=== PATIENT | female | born 1995 | race Caucasian/White ===

== ENCOUNTER → 2018-07-22 | Outpatient (CLI) | payer OTHER ==
[2016-04-05 14:31] VITALS: BP 117/72
[~2018-07-22] MED LIST: PNV1TABL25 PO
--- NOTE | 2018-07-23 08:50 | RAD ---
Obstetrical ultrasound, 07/22/2018: HISTORY: Unsure of dates Transabdominal scans were obtained. There is a twin intrauterine . The 2 fetuses are by a membrane. The fetus termed fetus A lies inferiorly in a cephalic orientation. The biparietal diameter measures 5.0 cm compatible with a gestational age of 21 weeks and 1 day. The average gestational age based on all of the measurements is 21 weeks and 2 days yielding a sonographic EDC of 11/30/2018. Normal activity and heart motion were seen. A four-chamber heart is evident with a heart rate of 145 bpm. Fluid is evident in the bladder and stomach. The visualized portions of the spine and kidneys are unremarkable. A three-vessel umbilical cord is identified with a normal cord insertion site. A normal amount of amniotic fluid is evident. The placenta supplying fetus A lies posteriorly. There is no evidence of placenta previa. The cervical length was estimated at 4.4 cm. The fetus termed fetus B lies in a transverse orientation with the head on the maternal left. The biparietal diameter measures 4.9 cm compatible with a gestational age of 20 weeks and 6 days. The femur length measurement suggests a gestational age of 22 weeks and 3 days. The average gestational age based on all of the measurements is 21 weeks and 4 days yielding a sonographic EDC of 11/28/2018. Normal activity and heart motion were seen. A four-chamber heart is present with a heart rate of 141 bpm. Fluid is identified in the bladder and stomach. The visualized portions of the spine and kidneys are unremarkable. A three-vessel umbilical cord is evident with a normal cord insertion site. A normal amount of amniotic fluid is present. The placenta supplying fetus B lies anteriorly. IMPRESSION: Twin intrauterine of 21-22 weeks gestational age as described above. Electronically signed by: Mervin Soliz MD (07/23/2018 8:47 AM) [facility]
== END | disposition home or self-care (01) ==
LOC: US 16:03
PROVIDERS: ATTEND Family Medicine
DX: O30.042 Twin pregnancy, dichorionic/diamniotic, second trimester (principal); Z3A.22 22 weeks gestation of pregnancy
CPT/HCPCS: 76805

== ENCOUNTER 2018-09-17 16:35 | Observation (INO) | payer OTHER ==
[2016-04-05 14:31] VITALS: BP 117/72
--- NOTE | 2018-09-18 07:52 | RAD ---
Ultrasound biophysical profile, 09/17/2018: HISTORY: Twin There is a twin intrauterine with the fetus termed twin A lying in a breech orientation on the maternal left, and the fetus termed twin B lying in a transverse orientation with a head on the maternal right. Twin A demonstrates a heart rate of 139 bpm. The overall uterine MISAEL is 17.8. The following biophysical profile scores were obtained for twin A: breathing movements-2 motion-2 tone-2 Amniotic fluid volume-2 Total score-8 out of 8 Twin B demonstrates a heart rate of 143 bpm. The following biophysical profile scores were obtained for twin B: breathing movements-2 motion-2 tone-2 Amniotic fluid volume-2 Total score-8 out of 8 Full surveys were not performed at this time. IMPRESSION: The ultrasound component of the biophysical profile score for both fetuses is 8 out of 8. Electronically signed by: Mervin Soliz MD (09/18/2018 7:49 AM) [facility]
== END 2018-09-17 19:00 | disposition hospice, home (50) ==
LOC: 3 SO LND 16:35
PROVIDERS: ADMIT Obstetrics & Gynecology; ATTEND Obstetrics & Gynecology
DX: O30.003 Twin pregnancy, unspecified number of placenta and unspecified number of amniotic sacs, third trimester (principal); Z3A.29 29 weeks gestation of pregnancy
CPT/HCPCS: 76819; G0378; G0379; 59025

== ENCOUNTER 2018-09-24 16:01 | Observation (INO) | payer OTHER ==
[2016-04-05 14:31] VITALS: BP 117/72
[2018-09-24] MEDS ORDERED: IV RINGERS,LACTATED 1000ML 1,000 ML IV PRN (16:15)
--- NOTE | 2018-09-24 17:22 | RAD ---
BIOPHYS PROFILE W/O NON STRESS History: Twin gestation Comparison: September 18, 2018. Findings: Multiple sonographic images from a biophysical profile are submitted. There was 8 of 8 scoring for both babies. Baby A was in cephalic presentation. Estimated MISAEL for baby A was 10.5 cm. heart rate for baby A was 126 beats per minute. There is posterior placenta for baby A. Baby B was in transverse position with head to the maternal right side. Estimated MISAEL for baby B was 10.5 cm. Baby B heart rate 126 bpm. There is anterior placenta for baby B. Impression: 1. There was 8 of 8 scoring for the biophysical profile for both babies. Electronically signed by: Mario Schmidt MD (09/24/2018 5:19 PM) [facility]
== END 2018-09-24 17:29 | disposition home health service (06) ==
LOC: 3 SO LND 16:01
PROVIDERS: ADMIT Obstetrics & Gynecology; ATTEND Obstetrics & Gynecology
DX: O30.003 Twin pregnancy, unspecified number of placenta and unspecified number of amniotic sacs, third trimester (principal); Z3A.30 30 weeks gestation of pregnancy
CPT/HCPCS: 76819; G0379; 59025

== ENCOUNTER 2018-10-01 15:59 | Observation (INO) | payer OTHER ==
[2016-04-05 14:31] VITALS: BP 117/72
--- NOTE | 2018-10-02 07:53 | RAD ---
Ultrasound biophysical profile, 10/01/2018: HISTORY: Twin gestation The limited exam of the gravid uterus demonstrates a twin . The fetus termed baby A lies inferiorly in a breech orientation. It demonstrates a heart rate of 152 bpm. The overall amniotic fluid index is 11.6. The placenta supplying this fetus lies posteriorly. The following biophysical profile scores were obtained for baby A: breathing movements-2 motion-2 tone-2 Amniotic fluid volume-2 Total score-8 out of 8 Baby B lies in a transverse orientation with the head on the maternal right. The heart rate for baby B is 143 bpm. The placenta supplying this fetus lies anteriorly. The following biophysical profile scores were obtained for baby B: breathing movements-2 motion-2 tone-2 Amniotic fluid volume-2 Total score 8 out of 8 IMPRESSION: The ultrasound component of the biophysical profile score is 8 out of 8 for both fetuses. Electronically signed by: Mervin Soliz MD (10/02/2018 7:49 AM) [facility]
== END 2018-10-01 17:10 | disposition home or self-care (01) ==
LOC: 3 SO LND 15:59
PROVIDERS: ADMIT Family Medicine; ATTEND Family Medicine
DX: O30.003 Twin pregnancy, unspecified number of placenta and unspecified number of amniotic sacs, third trimester (principal); Z3A.31 31 weeks gestation of pregnancy
CPT/HCPCS: 76819; G0379; 59025

== ENCOUNTER 2018-10-08 16:07 | Observation (INO) | payer OTHER ==
[2016-04-05 14:31] VITALS: BP 117/72
[2018-10-08] MEDS ORDERED: IV RINGERS,LACTATED 1000ML 1,000 ML IV SCH (16:30)
--- NOTE | 2018-10-08 18:02 | RAD ---
EXAM: biophysical profile. HISTORY: Twin biophysical profile assessment. TECHNIQUE: Sonographic imaging of a gravid uterus was performed. COMPARISON: 09/04/2018. FINDINGS: There is a twin intrauterine gestation. There is an anterior placenta without evidence of placenta previa. Twin A demonstrates normal breathing motion, body motion and tone and there is a normal amniotic fluid volume of 10.1 cm. This corresponds with a biophysical profile of 8/8. The twin A heart rate is 133 bpm. The twin A is in breech presentation. The twin A biparietal diameter is 7.72 cm, the head circumference is 28 point to 8 cm, the abdominal circumference is 27.76 cm, and the femoral length is 6.05 cm. This corresponds with an estimated gestational age of 31 weeks and 2 days and estimated weight of 1790 g. Twin B demonstrates normal breathing motion, body motion and tone and there is a normal and annular fluid volume of 10.1 cm. This corresponds with a biophysical profile of 8/8. The twin B heart rate is 132 bpm. The twin B is in transverse presentation. The twin B biparietal diameter is 7.63 cm, the head circumference is 27.92 cm, the abdominal circumference is 28.81 cm, and the femoral length is 6.43 cm. This corresponds with an estimated gestational age of 31 weeks and 6 days and estimated weight of 1985 g. IMPRESSION: Twin intrauterine gestation. Both twins demonstrate normal biophysical profiles of 8/8. Electronically signed by: Maribell Maurer MD (10/08/2018 5:59 PM) [facility]
== END 2018-10-08 17:40 | disposition home or self-care (01) ==
LOC: 3 SO LND 16:07
PROVIDERS: ADMIT Obstetrics & Gynecology; ATTEND Obstetrics & Gynecology
DX: O30.003 Twin pregnancy, unspecified number of placenta and unspecified number of amniotic sacs, third trimester (principal); Z3A.32 32 weeks gestation of pregnancy
CPT/HCPCS: 76819; G0378; G0379; 59025

== ENCOUNTER 2018-10-15 16:22 | Observation (INO) | payer OTHER ==
[2016-04-05 14:31] VITALS: BP 117/72
[2018-10-15] MEDS ORDERED: IV RINGERS,LACTATED 1000ML 1,000 ML IV SCH (16:30)
--- NOTE | 2018-10-16 08:00 | RAD ---
Ultrasound biophysical profile, 10/15/2018: History: Twin The limited exam of the gravid uterus demonstrates a twin intrauterine . The fetus termed twin A lies on the maternal left in a breech orientation. It demonstrates a heart rate 153 bpm. The overall amniotic fluid index is 12.5. The measurements suggest a gestational age of 32 weeks and 3 days and a weight of 4 pounds and 4 ounces +/- 10 ounces. The following biophysical profile scores were obtained: breathing movement-2 motion-2 tone-2 Amniotic fluid volume-2 Total score-8 out of 8 The fetus termed twin B lies on the maternal right in a cephalic orientation. This fetus demonstrates a heart rate of 140 bpm. The measurements suggest a gestational age of 32 weeks and 4 days and a weight of 4 pounds and 7 ounces +/- 11 ounces. The following biophysical profile scores were obtained: breathing movements-2 motion-2 tone-2. Amniotic fluid volume-2 Total score-8 out of 8 IMPRESSION: The ultrasound component on the biophysical profile score for both fetuses is 8 out of 8.
== END 2018-10-15 17:44 | disposition home or self-care (01) ==
LOC: 3 SO LND 16:22
PROVIDERS: ADMIT Obstetrics & Gynecology; ATTEND Obstetrics & Gynecology
DX: O12.03 Gestational edema, third trimester (principal); Z3A.33 33 weeks gestation of pregnancy
CPT/HCPCS: 76819; G0379

== ENCOUNTER 2018-10-23 16:33 | Observation (INO) | payer OTHER ==
[2016-04-05 14:31] VITALS: BP 117/72
[2018-10-23 16:56] LABS: BILIRUBIN,URINE NEGATIVE (NEG); CLARITY,URINE CLOUDY; COLOR,URINE YELLOW; NITRITE,URINE NEGATIVE (NEG); PROTEIN,URINE NEGATIVE (NEG-TRACE)
[2018-10-23 17:00] LABS: CREATININE,RANDOM URINE 35.2 mg/dL (Not Establ.)
[2018-10-23] MEDS ORDERED: IV RINGERS,LACTATED 1000ML 1,000 ML IV SCH (17:00)
[2018-10-23 17:05] LABS: BASO % 0 % (0-3); EOS # 0.1 x10^3/uL (0.0-0.7); EOS % 1 % (0-3); HEMATOCRIT 29.3 % (36.0-47.0); HEMOGLOBIN 9.5 g/dL (12.0-15.5); LYMPH # 2.1 x10^3/uL (1.0-4.8); LYMPH % 21 % (24-48); MEAN CORPUSCULAR HEMOGLOBIN 26 pg (25-35); MEAN CORPUSCULAR HGB CONC 32 g/dL (31-37); MEAN CORPUSCULAR VOLUME 81 fL (79-100); MONO # 0.8 x10^3/uL (0.0-1.1); MONO % 8 % (0-9); NEUT # 7.2 x10^3uL (1.8-7.7); NEUT % 70 % (31-73); PLATELET COUNT 259 x10^3/uL (140-400); RED BLOOD COUNT 3.63 x10^6/uL (3.50-5.40); RED CELL DISTRIBUTION WIDTH 15.5 % (11.5-14.5); WHITE BLOOD COUNT 10.3 x10^3/uL (4.0-11.0)
[2018-10-23 17:13] LABS: CALCIUM 8.7 mg/dL (8.5-10.1); CREATININE 0.6 mg/dL (0.6-1.0); GFR 126.2; POTASSIUM 3.9 mmol/L (3.5-5.1)
[2018-10-23 17:19] LABS: ALBUMIN 2.4 g/dL (3.4-5.0); ALBUMIN/GLOBULIN RATIO 0.5 (1.0-1.7); TOTAL BILIRUBIN 0.4 mg/dL (0.2-1.0); TOTAL PROTEIN 7.5 g/dL (6.4-8.2); URIC ACID 2.9 mg/dL (2.6-6.0)
--- NOTE | 2018-10-23 17:35 | RAD ---
Biophysical profile score dated 10/23/2018. No comparison available. CLINICAL INDICATION: Biophysical profile. FINDINGS: Twin gestation. Biophysical profile score of twin A equals 8 out of 8. movement 2 out of 2. tone 2 out of 2. fluid volume 2 out of 2. breathing 2 out of 2. Twin A is in breech presentation with amniotic fluid index of 11.2 cm. Heart rate 143 bpm. Placenta is posterior in location without placenta previa. Estimated sonographic gestational age of 34 weeks 0 days with estimated date of delivery of 12/04/2018. Biophysical profile score of twin B equals 8 out of 8. movement 2 out of 2. tone 2 out of 2. fluid volume 202. breathing 2 out of 2. Twin B is in cephalic presentation with amniotic fluid index of 11.2 cm. Heart rate 139 bpm. Placenta is anterior in location. Estimated sonographic gestational age of 33 weeks 5 days with estimated date of delivery of 12/06/2018. IMPRESSION: Viable twin gestation. Biophysical profile scores equal 8 out of 8. Electronically signed by: Russell Viramontes MD (10/23/2018 5:32 PM) [facility]
== END 2018-10-23 18:23 | disposition home or self-care (01) ==
LOC: 3 SO LND 16:33
PROVIDERS: ADMIT Obstetrics & Gynecology; ATTEND Obstetrics & Gynecology
DX: O30.003 Twin pregnancy, unspecified number of placenta and unspecified number of amniotic sacs, third trimester (principal); Z3A.34 34 weeks gestation of pregnancy
CPT/HCPCS: 36415; 76819; 80053; 81003; 82570; 83615; 84156; 84550; 85025; G0378; G0379; 59025

== ENCOUNTER 2018-10-28 21:19 | Observation (INO) | payer OTHER ==
[2016-04-05 14:31] VITALS: BP 117/72
[2018-10-28] MEDS ORDERED: IV RINGERS,LACTATED 1000ML 1,000 ML IV SCH (22:00)
[2018-10-28 22:23] LABS: BILIRUBIN,URINE NEGATIVE (NEG); CLARITY,URINE CLEAR; COLOR,URINE YELLOW; NITRITE,URINE NEGATIVE (NEG); PH,URINE 6.5; PROTEIN,URINE NEGATIVE (NEG-TRACE)
[2018-10-28 22:27] LABS: BACTERIA,URINE MODERATE /HPF (0-FEW); SQUAMOUS EPITHELIAL CELL,UR MANY /LPF; WBC,URINE 20-40 /HPF (0-4)
== END 2018-10-28 23:41 | disposition home or self-care (01) ==
LOC: 3 SO LND 21:19
PROVIDERS: ADMIT Obstetrics & Gynecology; ATTEND Obstetrics & Gynecology
DX: O62.9 Abnormality of forces of labor, unspecified (principal); Z3A.35 35 weeks gestation of pregnancy
CPT/HCPCS: 81001; 87086; G0378; G0379

== ENCOUNTER 2018-10-30 16:53 | Observation (INO) | payer OTHER ==
[2016-04-05 14:31] VITALS: BP 117/72
[2018-10-30] MEDS ORDERED: IV RINGERS,LACTATED 1000ML 1,000 ML IV SCH (16:55)
--- NOTE | 2018-10-31 08:02 | RAD ---
Ultrasound biophysical profile, 10/30/2018: HISTORY: Twin intrauterine Limited transabdominal scanning of the gravid uterus was performed. Twin A lies in a breech orientation and demonstrates a heart rate of 130 bpm. The placenta lies posteriorly. Amniotic fluid index is 9.7. The weight was estimated at 5 lbs. 11 oz. +/- 13 ounces. The gestational age based on all of the measurements was estimated at 35 weeks. The following biophysical profile scores were obtained: breathing movements-2 motion-2 tone-2 Amniotic fluid volume-2 Total score-8 out of 8 Twin B lies in a breech orientation and demonstrates a heart rate of 141 bpm. The placenta lies anteriorly. Amniotic fluid index is 9.7. The weight was estimated at 5 pounds and 15 ounces +/- 14 ounces. The gestational age based on all of the measurements was estimated at 35 weeks and 1 day. The following biophysical profile scores were obtained: breathing movement-2 motion-2 tone-2 Amniotic fluid volume-2 Total score-8 out of 8 IMPRESSION: Viable twin intrauterine with both fetuses demonstrating ultrasound biophysical profile scores of 8 out of 8. Electronically signed by: Mervin Soliz MD (10/31/2018 7:59 AM) [facility]
== END 2018-10-30 18:10 | disposition home or self-care (01) ==
LOC: 3 SO LND 16:53
PROVIDERS: ADMIT Obstetrics & Gynecology; ATTEND Obstetrics & Gynecology
DX: O30.003 Twin pregnancy, unspecified number of placenta and unspecified number of amniotic sacs, third trimester (principal); Z3A.35 35 weeks gestation of pregnancy
CPT/HCPCS: 76819; G0379

== ENCOUNTER 2018-11-07 05:32 | Inpatient (IN) | payer OTHER ==
[~2018-11-07] VITALS: Ht 170.2 cm; Wt 121.1 kg
[2018-11-07] VITALS (7 sets, daily range): BP systolic 121–140; BP diastolic 68–88
[2018-11-07] MEDS ORDERED: IV RINGERS,LACTATED 1000ML 1,000 ML IV SCH ×2 (05:38)
[2018-11-07] MEDS ORDERED: OXYTOCIN 30 UNIT/500 ML PREMIX 500 ML IV PRN ×2 (05:45→08:45)
[2018-11-07] MEDS ORDERED: LIDOCAINE 1% PF 30 ML VIAL. INJ PRN (05:45)
[2018-11-07] MEDS ORDERED: TERBUTALINE 1 MG/ML VIAL. SQ PRN (05:45)
[2018-11-07] MEDS ORDERED: 0.9 % SODIUM CHLORIDE 10 ML DISP.SYRIN. IV PRN ×2 (05:45→08:45)
[2018-11-07] MEDS ORDERED: CITRIC ACID/SODIUM CITRATE 30 ML SOLUTION. PO ONE (06:00)
[2018-11-07 06:37] LABS: BASO % 0 % (0-3); EOS % 1 % (0-3); HEMATOCRIT 28.3 % (36.0-47.0); HEMOGLOBIN 9.3 g/dL (12.0-15.5); LYMPH % 24 % (24-48); MEAN CORPUSCULAR HEMOGLOBIN 26 pg (25-35); MEAN CORPUSCULAR HGB CONC 33 g/dL (31-37); MEAN CORPUSCULAR VOLUME 80 fL (79-100); MONO # 0.7 x10^3/uL (0.0-1.1); MONO % 8 % (0-9); NEUT # 5.7 x10^3uL (1.8-7.7); NEUT % 67 % (31-73); PLATELET COUNT 236 x10^3/uL (140-400); RED BLOOD COUNT 3.54 x10^6/uL (3.50-5.40); RED CELL DISTRIBUTION WIDTH 16.3 % (11.5-14.5); WHITE BLOOD COUNT 8.4 x10^3/uL (4.0-11.0)
[2018-11-07] MEDS ORDERED: ONDANSETRON PF 4 MG/2 ML VIAL. ONE (07:05)
[2018-11-07] MEDS ORDERED: OXYTOCIN 10 UNIT/ML VIAL. ONE ×4 (07:05→08:18)
[2018-11-07] MEDS ORDERED: ePHEDrine PF IN SALINE 50 MG/10 ML SYRINGE. IV ONE (07:05)
[2018-11-07] MEDS ORDERED: MORPHINE PF 5 MG/10 ML VIAL. ONE (07:06)
[2018-11-07] MEDS ORDERED: fentaNYL PF VIAL 100 MCG/2 ML VIAL ONE (07:06)
--- NOTE | 2018-11-07 07:23 | PDOC1 ---
OB - History Hx of Present Care: Good Care Ultrasounds: Normal mid trimester US Obstetrical Complications: None Medical Complications: None Past Family/Social History * Past Medical, Surgical, Family and Obstetric Histories reviewed from chart. Rubella: Immune RPR/VDRL: Negative GBS Status: Negative HBsAG: Negative OB - Chief Complaint & HPI Date of Admission: Date of Admission: Nov 07, 2018 at 05:32 Chief Complaint/History : 2 Para: 1 EGA: 37 Reason for admission: section Indication for : other (twins) Admission Nurse Assessment Rev: Yes OB - Admission Exam Physical Exam Vitals: VS - Last 72 Hours, by Label Date Time Temp Pulse Resp B/P (MAP) Pulse Ox O2 Delivery O2 Flow Rate FiO2 11/07/18 06:50 98.3 64 18 140/69 (92) 98 Room Air 98.3 HEENT: Normal Heart: Regular Rate Lungs: Clear Abdomen: Gravid, Non tender, Soft Extremities: Edema Reflexes: Normal Cervical Dilatation: 1cm Effacement: 50% Station: -3 Membranes: Intact Heart Rate: Normal Accelerations: Accelerations Present Decelerations: No decelerations Contractions on Admission: >10 Minutes Apart Intensity: Mild Text A: 37 wks IUP Di/di twin gestation P: Admit for c/s. MILTON MAIN Jr, MD Nov 07, 2018 07:23
[2018-11-07] MEDS ORDERED: miSOPROStol 200 MCG TABLET ONE (07:24)
[2018-11-07] MEDS ORDERED: METHYLERGONOVINE MALEATE 0.2 MG/ML VIAL. IM ONE (07:24)
[2018-11-07] MEDS ORDERED: PHENYLEPHRINE in 0.9% NACL PF 1 MG/10 ML SYRINGE. IV ONE (07:44)
--- NOTE | 2018-11-07 08:34 | PDOC4 ---
OB Operative Note Date: Nov 07, 2018 PRE OP DIAGNOSIS: Multiple Gestation POST OP DIAGNOSIS: Multiple Gestation OPERATION PERFORMED: Ana Laura [facility] Surgeon Dr. Leon Machine Room Operator Dr. Robison Anesthesia: Regional (Spinal) Blood Loss 1200 ml Specimen uterus, placenta x 2, x 2 OB Findings: Position (Twin A breech, Twin B vertex), Sex (twin A female, Twin B male), (both 8/9), Weight (Twin A 2610 gm, Twin B 3040 gm), Fluid Complications none Additional Remarks pt. stable MILTON LEON Jr, MD Nov 07, 2018 08:34
[2018-11-07] MEDS ORDERED: ZOLPIDEM 5 MG TABLET. PO PRN (08:45)
[2018-11-07] MEDS ORDERED: ONDANSETRON PF 4 MG/2 ML VIAL. IV PRN (08:45)
[2018-11-07] MEDS ORDERED: diphenhydrAMINE ORAL ELIXIR 12.5 MG/5 ML ML PO PRN (08:45)
[2018-11-07] MEDS: KETOROLAC 30 MG/ML VIAL. IV PRN ×2 (09:46→21:22)
--- NOTE | 2018-11-07 11:51 | OP ---
DATE OF SURGERY: PREOPERATIVE DIAGNOSIS: A 37 weeks' intrauterine of di-di twin gestation. POSTOPERATIVE DIAGNOSIS: A 37 weeks' intrauterine of di-di twin gestation. PROCEDURE: Primary low transverse section. SURGEON: Milton Lockett M.D. EXHIBIT DESIGNER: Dr. Robison. ANESTHESIA: Spinal. ESTIMATED BLOOD LOSS: 1200 mL. COMPLICATIONS: None. FINDINGS: Viable twin A and viable twin B. Both with Apgars 8 and 9. Twin A weight 2610 grams. Twin B weight 3040 grams. Both had 3-vessel cord placenta delivered manually. SUMMARY: A 37-week di-di twin gestation presented for primary low transverse section. She was counseled on the risks, benefits and expectations and voiced a clear understanding to proceed. DESCRIPTION OF PROCEDURE: The patient was taken to the surgery suite and placed in dorsal supine position. She was prepped with ChloraPrep and draped in a sterile fashion. After adequate anesthesia, a Pfannenstiel skin incision was made with a scalpel down to and through the fascia. Fascia was extended laterally using curved Coy scissors. The superior edge of the fascia was grasped with two Saúl clamps and dissected free of the abdominal rectus muscles using blunt dissection along with Bovie cautery. The same process took place inferiorly. The abdominal rectus muscles were dissected bluntly at the midline. The peritoneum was grasped with 2 hemostats and entered sharply with Metzenbaum scissors. This incision was extended superiorly as well as inferiorly. The Juan ring retractor was placed. A low transverse hysterotomy incision made with the scalpel down to and through the amniotic sac of twin A. The hysterotomy incision was extended laterally and superiorly digitally with the aid of fundal pressure. Twin A was breech, in which the buttocks was delivered followed by the legs, which were flexed and delivered. The infant delivered down to the subscapular region along with some fundal pressure. The head was then delivered in an atraumatic manner. The infant was then suctioned with bulb syringe orally and nasally, umbilical cord was clamped twice and cut and viable twin A female infant was then handed to the waiting nursing staff. Amniotomy was performed on twin B, which was a moderate amount of clear fluid. Twin B was vertex. With fundal pressure, the infant's head was delivered in a smooth atraumatic manner. With additional fundal pressure, the anterior shoulder followed by posterior shoulder and rest of the male infant was delivered. was suctioned with a bulb syringe orally and nasally, umbilical cord was clamped twice and cut and the viable male infant was handed to the waiting nursing staff. Two 3-vessel cord placenta were delivered manually. The uterus was exteriorized and cleared of clot and debris with a moist lap. Hysterotomy incision was reapproximated using #1 Vicryl suture in running locked fashion. An 800 mcg of Cytotec was placed directly into the uterus prior to the closure of the hysterotomy incision. The uterus palpated firm. Fallopian tubes and ovaries appeared normal bilaterally. Posterior cul-de-sac was cleared of clot and debris with a moist lap. The uterus was then returned to the abdomen. Pericolic gutters were cleared of clot and debris with a moist lap. Hysterotomy incision was reviewed and was hemostatic. The Juan ring retractor was removed. The peritoneum was reapproximated using #1 Vicryl suture in running fashion. Fascia was reapproximated using 0 Vicryl suture in running fashion. Skin was reapproximated using 4-0 Vicryl suture in subcuticular manner. The patient tolerated the procedure well and was taken to recovery room in stable condition. Sponge and needle count correct x 3. MILTON LOCKETT MD DR: RUSS/hbavana JOB#: [id number] / [id number]
[2018-11-07] MEDS: DOCUSATE SODIUM 100 MG CAPSULE. PO PRN (18:31)
[2018-11-07] MEDS: oxyCODONE/APAP 5/325 1 TAB TABLET PO PRN (18:31)
[2018-11-07] MEDS: FERROUS SULFATE 325 MG TABLET. PO SCH (18:31)
[2018-11-08] VITALS (11 sets, daily range): BP systolic 111–139; BP diastolic 59–74
[2018-11-08] MEDS: oxyCODONE/APAP 5/325 1 TAB TABLET PO PRN ×3 (01:01→18:34)
[2018-11-08] MEDS: KETOROLAC 30 MG/ML VIAL. IV PRN (05:10)
[2018-11-08 05:34] LABS: BASO % 0 % (0-3); EOS # 0.1 x10^3/uL (0.0-0.7); EOS % 1 % (0-3); HEMATOCRIT 21.1 % (36.0-47.0); LYMPH # 2.5 x10^3/uL (1.0-4.8); LYMPH % 28 % (24-48); MEAN CORPUSCULAR HEMOGLOBIN 26 pg (25-35); MEAN CORPUSCULAR HGB CONC 32 g/dL (31-37); MEAN CORPUSCULAR VOLUME 81 fL (79-100); MONO # 0.6 x10^3/uL (0.0-1.1); MONO % 7 % (0-9); NEUT # 5.8 x10^3uL (1.8-7.7); NEUT % 64 % (31-73); PLATELET COUNT 188 x10^3/uL (140-400); RED BLOOD COUNT 2.61 x10^6/uL (3.50-5.40); WHITE BLOOD COUNT 9.1 x10^3/uL (4.0-11.0)
[2018-11-08 05:58] LABS: HEMOGLOBIN 6.8 g/dL (12.0-15.5)
[2018-11-08] MEDS: DOCUSATE SODIUM 100 MG CAPSULE. PO PRN ×2 (09:56→18:33)
[2018-11-08] MEDS: FERROUS SULFATE 325 MG TABLET. PO SCH ×2 (09:56→18:33)
--- NOTE | 2018-11-08 13:51 | PDOC ---
OB Progress Note Date of Service 11/08/18 Time of Evaluation 1350 Notes Pt. feeling well. No complaints. Lab Laboratory Tests Test 11/07/18 06:15 11/08/18 04:30 White Blood Count 8.4 x10^3/uL (4.0-11.0) 9.1 x10^3/uL (4.0-11.0) Red Blood Count 3.54 x10^6/uL (3.50-5.40) 2.61 x10^6/uL (3.50-5.40) Hemoglobin 9.3 g/dL (12.0-15.5) 6.8 g/dL (12.0-15.5) Hematocrit 28.3 % (36.0-47.0) 21.1 % (36.0-47.0) Mean Corpuscular Volume 80 fL (79-100) 81 fL (79-100) Mean Corpuscular Hemoglobin 26 pg (25-35) 26 pg (25-35) Mean Corpuscular Hemoglobin Concent 33 g/dL (31-37) 32 g/dL (31-37) Red Cell Distribution Width 16.3 % (11.5-14.5) 16.0 % (11.5-14.5) Platelet Count 236 x10^3/uL (140-400) 188 x10^3/uL (140-400) Neutrophils (%) (Auto) 67 % (31-73) 64 % (31-73) Lymphocytes (%) (Auto) 24 % (24-48) 28 % (24-48) Monocytes (%) (Auto) 8 % (0-9) 7 % (0-9) Eosinophils (%) (Auto) 1 % (0-3) 1 % (0-3) Basophils (%) (Auto) 0 % (0-3) 0 % (0-3) Neutrophils # (Auto) 5.7 x10^3uL (1.8-7.7) 5.8 x10^3uL (1.8-7.7) Lymphocytes # (Auto) 2.0 x10^3/uL (1.0-4.8) 2.5 x10^3/uL (1.0-4.8) Monocytes # (Auto) 0.7 x10^3/uL (0.0-1.1) 0.6 x10^3/uL (0.0-1.1) Eosinophils # (Auto) 0.0 x10^3/uL (0.0-0.7) 0.1 x10^3/uL (0.0-0.7) Basophils # (Auto) 0.0 x10^3/uL (0.0-0.2) 0.0 x10^3/uL (0.0-0.2) Treponema pallidum Antibody Nonreactive (Nonreactive) Laboratory Tests Test 11/08/18 04:30 White Blood Count 9.1 x10^3/uL (4.0-11.0) Red Blood Count 2.61 x10^6/uL (3.50-5.40) Hemoglobin 6.8 g/dL (12.0-15.5) Hematocrit 21.1 % (36.0-47.0) Mean Corpuscular Volume 81 fL (79-100) Mean Corpuscular Hemoglobin 26 pg (25-35) Mean Corpuscular Hemoglobin Concent 32 g/dL (31-37) Red Cell Distribution Width 16.0 % (11.5-14.5) Platelet Count 188 x10^3/uL (140-400) Neutrophils (%) (Auto) 64 % (31-73) Lymphocytes (%) (Auto) 28 % (24-48) Monocytes (%) (Auto) 7 % (0-9) Eosinophils (%) (Auto) 1 % (0-3) Basophils (%) (Auto) 0 % (0-3) Neutrophils # (Auto) 5.8 x10^3uL (1.8-7.7) Lymphocytes # (Auto) 2.5 x10^3/uL (1.0-4.8) Monocytes # (Auto) 0.6 x10^3/uL (0.0-1.1) Eosinophils # (Auto) 0.1 x10^3/uL (0.0-0.7) Basophils # (Auto) 0.0 x10^3/uL (0.0-0.2) Medications Current Medications Sodium Chloride (Normal Saline Flush) 3 ml QSHIFT PRN IV AFTER MEDS AND BLOOD DRAWS; Start 11/07/18 at 05:45; Stop 11/07/18 at 08:38; Status DC Ringer's Solution 1,000 ml @ 125 mls/hr Q8H IV Last administered on 11/07/18at 21:23; Start 11/07/18 at 05:38 Terbutaline Sulfate (Brethine) 0.25 mg 1X PRN PRN SQ SEE COMMENTS; Start 11/07/18 at 05:45; Stop 11/08/18 at 05:44; Status DC Lidocaine HCl (Xylocaine 1% Pf 30ml Vial) 30 ml 1X PRN PRN INJ SEE COMMENTS; Start 11/07/18 at 05:45; Stop 11/09/18 at 05:44 Oxytocin/Sodium Chloride 500 ml @ 0 mls/hr CONT PRN PRN IV Post delivery bleeding; Start 11/07/18 at 05:45 Ringer's Solution 1,000 ml @ 1,000 mls/hr Q1H IV ; Start 11/07/18 at 05:38; Stop 11/07/18 at 06:37; Status DC Cefazolin Sodium/ Dextrose 50 ml @ 100 mls/hr 1X ONCE IV Last administered on 11/07/18at 07:22; Start 11/07/18 at 06:00; Stop 11/07/18 at 06:29; Status DC Citric Acid/ Sodium Citrate (Bicitra) 30 ml 1X ONCE PO Last administered on 11/07/18at 07:22; Start 11/07/18 at 06:00; Stop 11/07/18 at 06:01; Status DC Ondansetron HCl (Zofran) 4 mg STK-MED ONCE .ROUTE ; Start 11/07/18 at 07:05; Stop 11/07/18 at 07:06; Status DC Oxytocin (Pitocin) 10 unit STK-MED ONCE .ROUTE ; Start 11/07/18 at 07:05; Stop 11/07/18 at 07:06; Status DC Ephedrine Sulfate (ePHEDrine PF IN SALINE SYRINGE) 50 mg STK-MED ONCE IV ; St art 11/07/18 at 07:05; Stop 11/07/18 at 07:06; Status DC Morphine Sulfate (Morphine Preservative Free) 5 mg STK-MED ONCE .ROUTE ; Start 11/07/18 at 07:06; Stop 11/07/18 at 07:07; Status DC Fentanyl Citrate (Fentanyl 2ml Vial) 100 mcg STK-MED ONCE .ROUTE ; Start 11/07/18 at 07:06; Stop 11/07/18 at 07:07; Status DC Misoprostol (Cytotec 200mcg Tab) 200 mcg STK-MED ONCE .ROUTE ; Start 11/07/18 at 07:24; Stop 11/07/18 at 07:25; Status DC Methylergonovine Maleate (Methergine) 0.2 mg STK-MED ONCE IM ; Start 11/07/18 at 07:24; Stop 11/07/18 at 07:25; Status DC Phenylephrine HCl (PHENYLEPHRINE in 0.9% NACL PF) 1 mg STK-MED ONCE IV ; Start 11/07/18 at 07:44; Stop 11/07/18 at 07:45; Status DC Oxytocin (Pitocin) 10 unit STK-MED ONCE .ROUTE ; Start 11/07/18 at 08:18; Stop 11/07/18 at 08:19; Status DC Oxytocin (Pitocin) 10 unit STK-MED ONCE .ROUTE ; Start 11/07/18 at 08:18; Stop 11/07/18 at 08:19; Status DC Oxytocin (Pitocin) 10 unit STK-MED ONCE .ROUTE ; Start 11/07/18 at 08:18; Stop 11/07/18 at 08:19; Status DC Sodium Chloride (Normal Saline Flush) 3 ml QSHIFT PRN IV AFTER MEDS AND BLOOD DRAWS; Start 11/07/18 at 08:45 Oxytocin/Sodium Chloride 500 ml @ 125 mls/hr CONT PRN IV EXCESSIVE POST- BLEEDING; Start 11/07/18 at 08:45; Stop 11/07/18 at 16:44; Status DC Ibuprofen (Motrin) 800 mg PRN Q4HRS PRN PO INFLAMMATION; Start 11/07/18 at 08:45 Ondansetron HCl (Zofran) 4 mg PRN Q6HRS PRN IV NAUSEA/VOMITING; Start 11/07/18 at 08:45 Docusate Sodium (Colace) 100 mg PRN BID PRN PO CONSTIPATION Last administered on 11/08/18at 09:56; Start 11/07/18 at 08:45 Al Hydroxide/Mg Hydroxide (Mylanta Plus Xs) 30 ml PRN Q4HRS PRN PO HEARTBURN / GAS; Start 11/07/18 at 08:45 Simethicone (Gas-X) 80 mg PRN AFTMEALHC PRN PO GAS / BLOATING; Start 11/07/18 at 08:45 Diphenhydramine HCl (Benadryl Oral Elixir) 12.5 mg PRN Q6HRS PRN PO ITCHING Last administered on 11/08/18at 01:01; Start 11/07/18 at 08:45 Ferrous Sulfate (Feosol) 325 mg BIDWMEALS PO Last administered on 11/08/18at 09:56; Start 11/07/18 at 17:00 Zolpidem Tartrate (Ambien) 5 mg PRN QHS PRN PO INSOMNIA, MAY REPEAT X1; Start 11/07/18 at 08:45 Oxycodone/ Acetaminophen (Percocet 5/325) 2 tab PRN Q4HRS PRN PO MODERATE PAIN, SEVERE PAIN Last administered on 11/08/18at 09:56; Start 11/07/18 at 08:45 Ketorolac Tromethamine (Toradol 30mg Vial) 30 mg PRN Q6HRS PRN IV PAIN Last administered on 11/08/18at 05:10; Start 11/07/18 at 08:45; Stop 11/12/18 at 08:44 Active Scripts Active Reported Tablet (Pnv Cmb#95/Ferrous Fumarate/Fa) 1 Each Tablet 1 Tab PO DAILY Exam Abd: soft, non tender, fundus firm Incision site: clean, dry and intact Assessment POD#1 s/p c/s Anemia Plan of Care: Continue current Tx, Mgmt (Receiving 2 Units PRBC's for anemia. ) MILTON MAIN Jr, MD Nov 08, 2018 13:51
[2018-11-08] MEDS: IBUPROFEN 400 MG TABLET. PO PRN ×2 (15:21→22:06)
[2018-11-08 18:28] LABS: HEMATOCRIT 24.8 % (36.0-47.0); HEMOGLOBIN 8.3 g/dL (12.0-15.5); RED BLOOD COUNT 3.04 x10^6/uL (3.50-5.40); RED CELL DISTRIBUTION WIDTH 16.1 % (11.5-14.5); WHITE BLOOD COUNT 9.3 x10^3/uL (4.0-11.0)
[2018-11-08] MEDS: SIMETHICONE 80 MG TAB.CHEW PO PRN (18:33)
[2018-11-08] MEDS: MAG HYDROX/ALUMINUM HYD/SIMETH 30 ML ORAL.SUSP PO PRN (22:06)
[2018-11-09 06:19] VITALS: BP 130/66
[2018-11-09] MEDS: SIMETHICONE 80 MG TAB.CHEW PO PRN (08:02)
[2018-11-09] MEDS: IBUPROFEN 400 MG TABLET. PO PRN ×2 (08:02→20:02)
[2018-11-09] MEDS: FERROUS SULFATE 325 MG TABLET. PO SCH (08:02)
[2018-11-09] MEDS: DOCUSATE SODIUM 100 MG CAPSULE. PO PRN (08:02)
[2018-11-09] MEDS: oxyCODONE/APAP 5/325 1 TAB TABLET PO PRN (11:57)
[2018-11-09] MEDS: MAG HYDROX/ALUMINUM HYD/SIMETH 30 ML ORAL.SUSP PO PRN (11:57)
[2018-11-09 12:00] VITALS: BP 125/77
--- NOTE | 2018-11-09 15:28 | PDOC ---
Provider Note Provider Note Doing well VSS Incision CDI FU in AM SHERWIN MARTÍNEZ MD Nov 09, 2018 15:28
[2018-11-09 18:30] VITALS: BP 134/74
[2018-11-09 23:40] VITALS: BP 135/82
[2018-11-10] MEDS: IBUPROFEN 400 MG TABLET. PO PRN ×2 (05:57→13:14)
[2018-11-10 06:30] VITALS: BP 123/67
[2018-11-10] MEDS: FERROUS SULFATE 325 MG TABLET. PO SCH (07:21)
[2018-11-10] MEDS: DOCUSATE SODIUM 100 MG CAPSULE. PO PRN (07:21)
--- NOTE | 2018-11-10 12:06 | PDOC3 ---
OB DISCHARGE SUMMARY DATE OF ADMISSION: 11/07/18 DATE OF DISCHARGE: 11/10/18 REASON FOR ADMISSION: section PROCEDURES: None INTRAPARTUM PROCEDURES: : Low Cerv Trans PROCEDURES: None OPERATIONS: None DISCHARGE INFORMATION: Activity, Diet HOSPITAL COURSE Unremarkable CONDITION AT DISCHARGE Stable SHERWIN MARTÍNEZ MD Nov 10, 2018 12:06
[2018-11-10] MEDS ORDERED: NAPR-514 PO (12:10)
[2018-11-10] MEDS ORDERED: FERR325T14 PO (12:10)
[2018-11-10] MEDS ORDERED: OXYC1TAB15 PO (12:10)
[2018-11-10] MEDS: oxyCODONE/APAP 5/325 1 TAB TABLET PO PRN (13:15)
[2018-11-10 13:36] VITALS: BP 138/79
--- NOTE | 2018-11-10 13:37 | NUR ---
Discharge Discharge instructions given to patient at this time, no questions or concerns noted. To follow up with DR Leon in 2 weeks at his office.
--- NOTE | 2018-11-11 15:06 | PATHOLOGY ---
[facility] Accession Number: [id number] . 01 Material submitted: . placenta - TWIN PLACENTAS TWIN B CORD HAS PLASTIC CLAMP ON IT . 01 Clinical history: . 37 week twin gestation, section EDC: 11/28/2018 Multiple gestation . 02 Diagnosis: 363 gram and 470 gram early term placentas of an estimated 37 weeks gestation with attached membranes and umbilical cords: - Diamniotic dichorionic twin placenta. (JPM:paolo; 11/11/2018) MBR/11/11/2018 . 02 Comment: There is no evidence of an acute chorioamnionitis or villitis in either placenta. There are no infarcts in either placenta. (JPM:paolo; 11/11/2018) . 02 Electronically signed: . Chris Jaquez MD, Pathologist NPI- [id number] . 01 Gross description: . The specimen is received in formalin, labeled "Sylvia Noriega, placenta" and consists of a 2 disc twin placenta consistent with a diamnionic dichorionic. A clamp is present on one umbilical cord designating twin B. The dividing membranes are translucent white and attached on twin A disc. Placenta A is roughly circular, measures 17.5 x 16.4 x 2.4 cm, and weighs 363 g after removal of membranes and umbilical cord. The membranes are pink-mccann, thin, and translucent. The surface is pink-whitley, glistening, and displays and eccentrically inserted three-vessel umbilical cord, 4.4 cm from edge. The cord measures 29.0 by up to 1.1 cm and is white-mccann with moderate twists. The maternal surface for placenta A shows complete and intact cotyledons with focal disruption, however no placental tissue is grossly absent. Sectioning reveals a maroon-red and spongy parenchyma with no gross lesions. . Placenta B is oval measuring 18.0 x 14.6 x 3.0 cm and weighs 470 g after removal of membranes and umbilical cord. The membranes are pink-mccann, thin, and translucent. The surface is pink-whitley, glistening with a single fibrin deposit measuring 1.5 cm (less than 5% of the overall surface). There is a three-vessel eccentrically inserted umbilical cord, 4.5 cm from edge, which measures 47.4 cm in length and up to 1.8 cm in diameter. The cord is white-mccann, edematous with moderate twists. The maternal surface shows complete and intact cotyledons with moderate adherent blood clot (10-20 mL). Sectioning reveals maroon-red and spongy parenchyma with no gross lesions. Driver License Agent sections are submitted as follows: . A1: Placenta A T-zone and dividing membrane roll A2: Placenta A membrane roll and periphery A3: Placenta A umbilical cord A4-A5: Placenta A full-thickness sections A6: Placenta B periphery and membrane roll A7: Placenta B umbilical cord A8-A9: Placenta B full thickness sections (SDY; 11/08/2018) SYU/SYU . 02 Pathologist provided ICD-10: O30.043, Z37.9, Z3A.37 . 02 CPT . 222427, 276015 Specimen Comment: A courtesy copy of this report has been sent to Specimen Comment: [phone], . Specimen Comment: Report sent to / DR MILLIGAN Performed at: 01 [facility] [address], [place] [id number] MD Patric Chavez MD Phone: [phone] Performed at: 02 [facility] [address] [place], [place] [id number] MD Chris Jaquez MD Phone: [phone]
== END 2018-11-10 18:08 | disposition home or self-care (01) | DRG 788 ==
LOC: 3 SO LND 05:32
PROVIDERS: ADMIT Obstetrics & Gynecology; ATTEND Obstetrics & Gynecology
PROC: 10D00Z1 Extraction of Products of Conception, Low, Open Approach (ICD-10-PCS; principal; 2018-11-07)
PROC: 30233N1 Transfusion of Nonautologous Red Blood Cells into Peripheral Vein, Percutaneous Approach (ICD-10-PCS; 2018-11-08)
DX: O30.043 Twin pregnancy, dichorionic/diamniotic, third trimester (principal); O32.1XX1 Maternal care for breech presentation, fetus 1; O90.81 Anemia of the puerperium; D64.9 Anemia, unspecified; Z37.2 Twins, both liveborn; Z3A.37 37 weeks gestation of pregnancy
CPT/HCPCS: 36415; 85025; 85027; 86592; 86850; 86900; 86901; 86920; J0171; J0696; J1885; J2270; J2370; J2405; J2590; J3010; J7120; P9016